=== PATIENT | female | born 1950 | race Caucasian/White ===

== ENCOUNTER 2018-08-24 20:15 | Emergency (ER) | payer MEDICARE, MEDICAID ==
[~2018-08-24] VITALS: Ht 160 cm; Wt 59.0 kg
[2018-08-24 20:32] VITALS: BP 152/71
== END 2018-08-24 22:02 | disposition left against medical advice (07) ==
LOC: ER 20:15
DX: Z53.21 Procedure and treatment not carried out due to patient leaving prior to being seen by health care provider (principal)